=== PATIENT | male | born 1980 | race Caucasian/White ===

== ENCOUNTER 2020-07-02 17:15 | Emergency (ER) | payer OTHER ==
[~2020-07-02] VITALS: Ht 182.9 cm; Wt 87.1 kg
[2020-07-02] MEDS ORDERED: AZATHIOPRINE PO (17:37)
[2020-07-02] MEDS ORDERED: LIALDA1.2 GM PO (17:38)
[2020-07-02] MEDS ORDERED: HUMARA (17:39)
[2020-07-02 18:57] LABS: ABSOLUTE EOSINOPHILS 0.2 thou/uL (0.0-0.7); ABSOLUTE LYMPHOCYTES 1.4 thou/uL (0.8-5.3); ABSOLUTE MONOCYTES 0.3 thou/uL (0.0-1.2); ABSOLUTE NEUTROPHILS 1.8 thou/uL (1.6-8.1); BASOPHILS 1.2 %; EOSINOPHILS 5.6 %; HEMATOCRIT 41.3 % (42.0-52.0); HEMOGLOBIN 13.8 gm/dL (14.0-18.0); LYMPHOCYTES 37.4 %; MCH 32.1 pg (26.0-34.0); MCHC 33.4 g/dL (28.0-37.0); MONOCYTES 8.6 %; MPV 7.5 fl. (7.2-11.1); NUCLEATED RBCS 0 /100WBC; PLATELET COUNT* 206 thou/uL (150-400); POLYS 47.2 %; WBC 3.7 thou/uL (4.0-11.0)
[2020-07-02 19:00] VITALS: BP 116/73
[2020-07-02 19:07] LABS: CALCIUM 9.2 mg/dL (8.5-10.1); CREATININE 1.1 mg/dL (0.6-1.3); POTASSIUM 3.7 mmol/L (3.5-5.1)
[2020-07-02 19:11] LABS: ALBUMIN 3.4 g/dL (3.4-5.0); TOTAL BILIRUBIN 0.3 mg/dL (<0.1-1.0); TOTAL PROTEIN 6.9 g/dL (6.4-8.2)
== END 2020-07-02 19:03 | disposition home or self-care (01) ==
LOC: M.ERS 17:15
PROVIDERS: Physician Assistant
DX: R06.00 Dyspnea, unspecified (principal); R07.89 Other chest pain; Z20.828 Contact with and (suspected) exposure to other viral communicable diseases; Z87.01 Personal history of pneumonia (recurrent)